=== PATIENT | female | born 1990 | race African-American/Black ===

== ENCOUNTER 2016-06-21 22:26 | Emergency (ER) | payer MEDICAID ==
[~2016-06-21] VITALS: Ht 170.2 cm; Wt 54.4 kg
[2016-06-21 23:45] LABS: Basophils # (auto) 0 uL; Basophils % (auto) 0.3 % (0.0-2.0); Eosinophils # (auto) 0 uL; Eosinophils % (auto) 0.4 % (0.0-7.0); Hematocrit 40.9 % (36.0-46.0); Hemoglobin 12.8 g/dL (12.2-16.2); Lymphocytes # (auto) 1.9 uL; Mean Corpuscular Hemoglobin 29.3 pg (28.0-32.0); Mean Corpuscular Hgb Conc. 31.3 g/dL (32.0-36.0); Mean Corpuscular Volume 93.7 fL (80.0-100.0); Mean Platelet Volume 9.8 fL (7.4-10.4); Monocytes # (auto) 0.5 uL; Monocytes % (auto) 5.8 % (0.0-12.0); Neutrophils # (auto) 5.6 uL; Neutrophils % (auto) 69.5 % (37.0-80.0); Platelet Count (auto) 195 10^3/uL (140-450); Red Cell Distribution Width 13.5 % (11.6-16.0); White Blood Cell 8.1 10^3/uL (4.4-10.8)
[2016-06-22 00:03] LABS: INR 0.98 (0.9-1.15); Prothrombin Time 10.1 sec (9.37-12.3)
[2016-06-22 00:13] LABS: Albumin 4.1 g/dL (3.4-5.0); BUN/Creatinine Ratio 16.1; Calcium 9.2 mg/dL (8.5-10.1)
[2016-06-22 00:23] LABS: Bilirubin, Total 0.5 mg/dL (0.2-1.0); Total Protein 7.6 g/dL (6.4-8.2)
[2016-06-22 06:17] VITALS: BP 106/58
== END 2016-06-22 06:40 | disposition home or self-care (01) ==
LOC: ER 22:30
DX: O20.0 Threatened abortion (principal); O99.331 Smoking (tobacco) complicating pregnancy, first trimester; F17.210 Nicotine dependence, cigarettes, uncomplicated; Z3A.09 9 weeks gestation of pregnancy
CPT/HCPCS: 36415; 76801; 80053; 84702; 85025; 85610; 85730; 94761

== ENCOUNTER 2017-04-02 22:11 | Emergency (ER) | payer MEDICAID ==
[~2017-04-02] VITALS: Ht 170.2 cm; Wt 49.9 kg
[2017-04-02 23:22] LABS: Urine RBC None Seen /hpf (0 - 4)
[2017-04-02 23:24] LABS: Basophils # (auto) 0 uL; Basophils % (auto) 0.4 % (0.0-2.0); Eosinophils # (auto) 0.1 uL; Eosinophils % (auto) 1.2 % (0.0-7.0); Hematocrit 40.9 % (36.0-46.0); Hemoglobin 13.8 g/dL (12.2-16.2); Lymphocytes # (auto) 2.8 uL; Lymphocytes % (auto) 38.1 % (10.0-50.0); Mean Corpuscular Hemoglobin 30.9 pg (28.0-32.0); Mean Corpuscular Hgb Conc. 33.6 g/dL (32.0-36.0); Mean Corpuscular Volume 91.9 fL (80.0-100.0); Mean Platelet Volume 9.5 fL (6.9-10.8); Monocytes # (auto) 0.4 uL; Monocytes % (auto) 5.4 % (0.0-12.0); Neutrophils # (auto) 4.1 uL; Neutrophils % (auto) 54.9 % (37.0-80.0); Nucleated Red Blood Cells % 0.1 %; Platelet Count (auto) 208 10^3/uL (140-450); Red Cell Distribution Width 12.8 % (11.8-14.3); White Blood Cell 7.5 10^3/uL (4.4-10.8)
[2017-04-02 23:28] LABS: Urine Bilirubin Negative (Negative); Urine Blood Negative /uL (Negative); Urine Color Yellow (Yellow); Urine Glucose Normal (Normal); Urine Ketone 2+ (Negative); Urine Mucus FEW (None Seen); Urine Nitrite Negative (Negative); Urine Squamous Epithelial Cell FEW /hpf (<5); Urine Urobilinogen Normal (Negative); Urine pH 5.5 (5.0-8.0)
[2017-04-02 23:41] LABS: Albumin 4.2 g/dL (3.4-5.0); BUN/Creatinine Ratio 15.3; Calcium 9.1 mg/dL (8.5-10.1); Potassium 3.6 mmol/L (3.5-5.1)
[2017-04-02 23:44] LABS: Bilirubin, Total 0.8 mg/dL (0.2-1.0); Total Protein 8.1 g/dL (6.4-8.2)
[2017-04-03 04:30] VITALS: BP 110/64
== END 2017-04-03 06:09 | disposition home or self-care (01) ==
LOC: ER 22:11
DX: O20.0 Threatened abortion (principal); O26.891 Other specified pregnancy related conditions, first trimester; R10.2 Pelvic and perineal pain; Z3A.01 Less than 8 weeks gestation of pregnancy
CPT/HCPCS: 36415; 76801; 76817; 80053; 81001; 84702; 85025

== ENCOUNTER 2017-06-02 22:49 | Emergency (ER) | payer MEDICAID ==
[~2017-06-02] VITALS: Ht 152.4 cm; Wt 54.4 kg
[2017-06-02 23:06] VITALS: BP 119/78
[2017-06-03 01:14] LABS: Basophils # (auto) 0.1 uL; Basophils % (auto) 0.7 % (0.0-2.0); Eosinophils # (auto) 0.2 uL; Eosinophils % (auto) 2.2 % (0.0-7.0); Hematocrit 37.4 % (36.0-46.0); Hemoglobin 12.8 g/dL (12.2-16.2); Lymphocytes # (auto) 2.3 uL; Lymphocytes % (auto) 26.2 % (10.0-50.0); Mean Corpuscular Hemoglobin 31.3 pg (28.0-32.0); Mean Corpuscular Hgb Conc. 34.3 g/dL (32.0-36.0); Mean Corpuscular Volume 91.2 fL (80.0-100.0); Monocytes # (auto) 0.7 uL; Neutrophils # (auto) 5.5 uL; Neutrophils % (auto) 62.9 % (37.0-80.0); Nucleated Red Blood Cells % 0.1 %; Platelet Count (auto) 146 10^3/uL (140-450); Red Cell Distribution Width 13.1 % (11.8-14.3); White Blood Cell 8.7 10^3/uL (4.4-10.8)
[2017-06-03 01:25] LABS: Albumin 3.2 g/dL (3.4-5.0); Potassium 3.3 mmol/L (3.5-5.1)
[2017-06-03 01:27] LABS: Bilirubin, Total 0.3 mg/dL (0.2-1.0)
[2017-06-03 02:04] LABS: Urine Bacteria NONE SEEN /hpf (None Seen); Urine Blood Negative /uL (Negative); Urine Mucus FEW (None Seen); Urine Specific Gravity 1.023 (1.001-1.035); Urine WBC 1 /hpf (0 - 5)
== END 2017-06-03 03:11 | disposition home or self-care (01) ==
LOC: ER 22:52
DX: O20.0 Threatened abortion (principal); O99.331 Smoking (tobacco) complicating pregnancy, first trimester; F17.210 Nicotine dependence, cigarettes, uncomplicated; Z3A.14 14 weeks gestation of pregnancy
CPT/HCPCS: 36415; 76801; 80053; 81001; 84702; 85025

== ENCOUNTER 2017-08-02 10:00 | Observation (INO) | payer MEDICAID ==
[~2017-08-02] VITALS: Ht 170.2 cm; Wt 56.7 kg
[2017-08-02 12:51] LABS: Alcohol, Urine < 3.0 mg/dL (0-5); Amphetamine Screen, Urine NEGATIVE (NEGATIVE); Barbiturate Scree,Urine NEGATIVE (NEGATIVE); Benzodiazephine Screen, Urine NEGATIVE (NEGATIVE); Cannabinoid Screen, Urine NEGATIVE (NEGATIVE); Cocaine Screen, Urine NEGATIVE (NEGATIVE); Opiate Scree,Urine NEGATIVE (NEGATIVE); Phencyclidine Screen, Urine NEGATIVE (NEGATIVE)
[2017-08-02] MEDS ORDERED: BETAMETHASONE ACET (6MG/ML) 5ML VIAL IM ONE (13:45)
[2017-08-02 14:39] LABS: Basophils # (auto) 0 uL; Basophils % (auto) 0.3 % (0.0-2.0); Eosinophils # (auto) 0.1 uL; Eosinophils % (auto) 0.7 % (0.0-7.0); Hematocrit 38.2 % (36.0-46.0); Hemoglobin 12.9 g/dL (12.2-16.2); Lymphocytes # (auto) 1.1 uL; Lymphocytes % (auto) 12.1 % (10.0-50.0); Mean Corpuscular Hgb Conc. 33.7 g/dL (32.0-36.0); Monocytes # (auto) 0.6 uL; Monocytes % (auto) 6.6 % (0.0-12.0); Neutrophils % (auto) 80.3 % (37.0-80.0); Platelet Count (auto) 138 10^3/uL (140-450); Red Blood Cells 4.16 10^6/uL (4.0-5.20); White Blood Cell 8.7 10^3/uL (4.4-10.8)
[2017-08-02] MEDS ORDERED: LACTATED RINGER'S 1,000 ML IV SCH (14:45)
[2017-08-02] MEDS ORDERED: MAGNESIUM SULFATE 40MG/ML 1,000 ML IV SCH (14:45)
[2017-08-02] MEDS ORDERED: MAGNESIUM SULFATE 100 ML IV ONE (14:45)
[2017-08-02] MEDS ORDERED: ceFAZolin 1GM/50ML 50 ML IV SCH (15:00)
[2017-08-02 15:06] LABS: BUN/Creatinine Ratio 9.6; Bilirubin, Total 0.5 mg/dL (0.2-1.0); Calcium 8.4 mg/dL (8.5-10.1); Potassium 3.8 mmol/L (3.5-5.1); Total Protein 7.1 g/dL (6.4-8.2)
[2017-08-02 16:06] LABS: INR 0.92 (0.9-1.15); Partial Thromboplastin Time 26.9 sec (22.64-33.71)
== END 2017-08-02 15:46 | disposition short-term general hospital (02) | DRG 782 ==
LOC: LDRP 10:00
PROVIDERS: ADMIT Obstetrics & Gynecology; ATTEND Obstetrics & Gynecology
DX: O42.912 Preterm premature rupture of membranes, unspecified as to length of time between rupture and onset of labor, second trimester (principal); Z3A.23 23 weeks gestation of pregnancy
CPT/HCPCS: 36415; 59025; 76805; 80053; 80307; 81002; 85025; 85610; 85730; 86850; 86900; 86901; 96365; 96367; 96372; G0378; J0690; J0702; J3475; 96366

== ENCOUNTER 2018-05-02 06:55 | Emergency (ER) | payer MEDICAID ==
[~2018-05-02] VITALS: Ht 167.6 cm; Wt 63.5 kg
[2018-05-02] MEDS ORDERED: SODIUM CHLORIDE 0.9% 1,000 ML IVB ONE (07:28)
[2018-05-02 07:43] LABS: Urine Bacteria FEW /hpf (None Seen); Urine Blood 3+ /uL (Negative); Urine Specific Gravity 1.003 (1.001-1.035); Urine WBC 16 /hpf (0 - 5)
[2018-05-02 07:58] LABS: Basophils # (auto) 0 uL; Basophils % (auto) 0.5 % (0.0-2.0); Eosinophils # (auto) 0.1 uL; Hematocrit 35.8 % (36.0-46.0); Hemoglobin 12.3 g/dL (12.2-16.2); Lymphocytes # (auto) 1.6 uL; Lymphocytes % (auto) 15.6 % (10.0-50.0); Mean Corpuscular Hemoglobin 30.5 pg (28.0-32.0); Mean Corpuscular Hgb Conc. 34.4 g/dL (32.0-36.0); Mean Corpuscular Volume 88.6 fL (80.0-100.0); Monocytes # (auto) 0.6 uL; Monocytes % (auto) 6.4 % (0.0-12.0); Neutrophils # (auto) 7.7 uL; Neutrophils % (auto) 76.5 % (37.0-80.0); Platelet Count (auto) 152 10^3/uL (140-450); Red Blood Cells 4.04 10^6/uL (4.0-5.20); Red Cell Distribution Width 13.4 % (11.8-14.3)
[2018-05-02 08:15] LABS: Albumin 2.9 g/dL (3.4-5.0); Calcium 8.2 mg/dL (8.5-10.1); Potassium 3.7 mmol/L (3.5-5.1)
[2018-05-02 08:19] LABS: BUN/Creatinine Ratio 10.3; Bilirubin, Total 0.5 mg/dL (0.2-1.0); Total Protein 6.8 g/dL (6.4-8.2)
[2018-05-02 09:48] VITALS: BP 105/73
== END 2018-05-02 10:01 | disposition home or self-care (01) ==
LOC: ER 06:55 → EDBD 06:55 → ER 10:01
DX: O20.9 Hemorrhage in early pregnancy, unspecified (principal); Z3A.19 19 weeks gestation of pregnancy
CPT/HCPCS: 36415; 76805; 80053; 81001; 84702; 85025; 86850; 86900; 86901; 94761; 99284; J7030

== ENCOUNTER 2019-01-16 23:31 | Emergency (ER) | payer MEDICAID ==
[~2019-01-16] VITALS: Ht 170.2 cm; Wt 63.5 kg
[2019-01-17 00:34] LABS: Basophils # (auto) 0.1 uL; Basophils % (auto) 0.6 % (0.0-2.0); Eosinophils # (auto) 0.1 uL; Eosinophils % (auto) 0.8 % (0.0-7.0); Hematocrit 33.1 % (36.0-46.0); Hemoglobin 11.1 g/dL (12.2-16.2); Lymphocytes # (auto) 1.8 uL; Lymphocytes % (auto) 19.5 % (10.0-50.0); Mean Corpuscular Hemoglobin 27.6 pg (28.0-32.0); Mean Corpuscular Hgb Conc. 33.6 g/dL (32.0-36.0); Mean Corpuscular Volume 81.9 fL (80.0-100.0); Monocytes # (auto) 0.7 uL; Monocytes % (auto) 7.3 % (0.0-12.0); Neutrophils # (auto) 6.7 uL; Neutrophils % (auto) 71.8 % (37.0-80.0); Nucleated Red Blood Cells % 0.1 %; Platelet Count (auto) 173 10^3/uL (140-450); Red Blood Cells 4.04 10^6/uL (4.0-5.20); White Blood Cell 9.3 10^3/uL (4.4-10.8)
[2019-01-17 06:50] VITALS: BP 108/64
[2019-01-17 07:46] LABS: Urine Bacteria FEW /hpf (None Seen); Urine Blood Negative /uL (Negative); Urine Mucus FEW (None Seen); Urine Specific Gravity 1.011 (1.001-1.035); Urine WBC 2 /hpf (0 - 5)
== END 2019-01-17 09:27 | disposition left against medical advice (07) ==
LOC: ER 23:34
DX: O26.891 Other specified pregnancy related conditions, first trimester (principal); R10.30 Lower abdominal pain, unspecified; R10.2 Pelvic and perineal pain; Z88.6 Allergy status to analgesic agent; Z88.8 Allergy status to other drugs, medicaments and biological substances; Z3A.10 10 weeks gestation of pregnancy
CPT/HCPCS: 36415; 81001; 84702; 85025

== ENCOUNTER 2019-03-05 17:12 | Observation (INO) | payer MEDICAID ==
[~2019-03-05] VITALS: Ht 170.2 cm; Wt 64.9 kg
[2019-03-05] MEDS ORDERED: HYDR250I6 IM (17:47)
[2019-03-05] MEDS ORDERED: PREN-96 PO (17:47)
[2019-03-05] MEDS ORDERED: LACTATED RINGER'S 1,000 ML IV SCH (20:45)
[2019-03-05] MEDS ORDERED: LACTATED RINGER'S 500 ML IV ONE (20:45)
[2019-03-05 21:56] LABS: Basophils # (auto) 0 uL; Basophils % (auto) 0.2 % (0.0-2.0); Eosinophils # (auto) 0.1 uL; Eosinophils % (auto) 0.8 % (0.0-7.0); Hematocrit 32.6 % (36.0-46.0); Hemoglobin 10.7 g/dL (12.2-16.2); Lymphocytes # (auto) 1.7 uL; Lymphocytes % (auto) 15.6 % (10.0-50.0); Mean Corpuscular Hemoglobin 27.9 pg (28.0-32.0); Mean Corpuscular Hgb Conc. 32.9 g/dL (32.0-36.0); Mean Corpuscular Volume 84.8 fL (80.0-100.0); Monocytes # (auto) 0.8 uL; Neutrophils # (auto) 8.2 uL; Neutrophils % (auto) 76.4 % (37.0-80.0); Nucleated Red Blood Cells % 0.1 %; Platelet Count (auto) 176 10^3/uL (140-450); Red Blood Cells 3.85 10^6/uL (4.0-5.20); Red Cell Distribution Width 15.2 % (11.8-14.3); White Blood Cell 10.8 10^3/uL (4.4-10.8)
[2019-03-05 21:58] LABS: Albumin 2.9 g/dL (3.4-5.0); Potassium 3.9 mmol/L (3.5-5.1)
[2019-03-05 21:59] LABS: INR 0.93 (0.9-1.15); Partial Thromboplastin Time 25.6 sec (23.64-32.05)
[2019-03-05 22:01] LABS: Bilirubin, Total 0.3 mg/dL (0.2-1.0); Total Protein 7.3 g/dL (6.4-8.2)
[2019-03-05 22:29] LABS: Urine Bacteria FEW /hpf (None Seen); Urine Blood Negative /uL (Negative); Urine Mucus FEW (None Seen); Urine Specific Gravity 1.017 (1.001-1.035); Urine WBC 1 /hpf (0 - 5)
[2019-03-06] MEDS ORDERED: ceFAZolin 1GM/50ML 50 ML IV ONE (10:01)
[2019-03-06] MEDS ORDERED: LACTATED RINGER'S 1,000 ML IV SCH (10:49)
[2019-03-06] MEDS ORDERED: ePHEDrine SULFATE 50 MG/ML AMP IV PRN (11:00)
[2019-03-06] MEDS ORDERED: LABETALOL HCL 5 MG/ML 4ML SYRINGE IV PRN (11:00)
[2019-03-06] MEDS ORDERED: ONDANSETRON HCL 4 MG/2 ML VIAL IV PRN (11:00)
[2019-03-06 11:27] VITALS: BP 106/62
--- NOTE | 2019-03-06 14:45 | NUR ---
[place] and juice provided to patient; pt has feeling and able to move legs; pt attempt to walk with RN assist; unable to walk at this time. Pt to remain on unit until able to ambulate independently per Dr Debora walters.
== END 2019-03-06 16:27 | disposition home or self-care (01) | DRG 566 ==
LOC: LDRP 17:12
PROVIDERS: ADMIT Obstetrics & Gynecology; ATTEND Obstetrics & Gynecology
DX: O34.32 Maternal care for cervical incompetence, second trimester (principal); O09.212 Supervision of pregnancy with history of pre-term labor, second trimester; Z88.6 Allergy status to analgesic agent; Z3A.22 22 weeks gestation of pregnancy
CPT/HCPCS: 36415; 59025; 59320; 80053; 81001; 81002; 84112; 84702; 85025; 85610; 85730; 86850; 86900; 86901; G0378; J0690; 96361; 96365

== ENCOUNTER 2019-03-26 11:08 | Observation (INO) | payer MEDICAID ==
[~2019-03-26] VITALS: Ht 170.2 cm; Wt 67.1 kg
[~2019-03-26 11:08] MED LIST: HYDR250I6 IM; PREN-96 PO
[2019-03-26] MEDS ORDERED: BETAMETHASONE ACET (6MG/ML) 5ML VIAL ONE (12:16)
[2019-03-27] MEDS ORDERED: BETAMETHASONE ACET (6MG/ML) 5ML VIAL IM SCH (10:00)
[2019-03-27] MEDS ORDERED: ACYC-43 PO (13:27)
== END 2019-03-26 12:45 | disposition home or self-care (01) | DRG 566 ==
LOC: LDRP 11:08
PROVIDERS: ADMIT Specialist; ATTEND Specialist
DX: O34.82 Maternal care for other abnormalities of pelvic organs, second trimester (principal); O60.02 Preterm labor without delivery, second trimester; Z3A.24 24 weeks gestation of pregnancy; Z86.19 Personal history of other infectious and parasitic diseases
CPT/HCPCS: 59025; 81002; 96372; G0378; J0702

== ENCOUNTER 2019-03-27 13:00 | Observation (INO) | payer MEDICAID ==
[~2019-03-27] VITALS: Ht 170.2 cm; Wt 67.1 kg
[2019-03-27] MEDS ORDERED: ACYC-43 PO (13:27)
[2019-03-28] MEDS ORDERED: BETAMETHASONE ACET (6MG/ML) 5ML VIAL IM SCH (10:00)
== END 2019-03-27 13:57 | disposition home or self-care (01) | DRG 955 ==
LOC: LDRP 13:00
PROVIDERS: ADMIT Obstetrics & Gynecology; ATTEND Obstetrics & Gynecology
DX: O09.212 Supervision of pregnancy with history of pre-term labor, second trimester (principal); O26.893 Other specified pregnancy related conditions, third trimester; R11.0 Nausea; O34.219 Maternal care for unspecified type scar from previous cesarean delivery; Z87.59 Personal history of other complications of pregnancy, childbirth and the puerperium; Z3A.24 24 weeks gestation of pregnancy
CPT/HCPCS: 59025; 81002; 96372; G0378

== ENCOUNTER 2019-05-20 11:45 | Observation (INO) | payer MEDICAID ==
[~2019-05-20 11:45] MED LIST changes: +ACYC-43 PO
== END 2019-05-20 13:15 | disposition home or self-care (01) | DRG 955 ==
LOC: LDRP 11:45
PROVIDERS: ADMIT Specialist; ATTEND Specialist
DX: O09.213 Supervision of pregnancy with history of pre-term labor, third trimester (principal); Z3A.32 32 weeks gestation of pregnancy
CPT/HCPCS: 59025; 76818; 81002; G0378

== ENCOUNTER 2019-06-10 12:07 | Observation (INO) | payer MEDICAID ==
[~2019-06-10] VITALS: Ht 170.2 cm; Wt 73.9 kg
[2019-06-10] MEDS ORDERED: LACTATED RINGER'S 1,000 ML IV ONE ×2 (12:53→15:45)
[2019-06-10] MEDS ORDERED: TERBUTALINE SULFATE 1 MG/ML 1ML VIAL SC ONE ×3 (12:57→13:45)
[2019-06-10] MEDS ORDERED: NIFEdipine 10 MG CAP PO ONE (14:45)
[2019-06-10] MEDS ORDERED: NIFEdipine 10 MG CAP ONE (14:47)
[2019-06-10 17:05] LABS: Amphetamine Screen, Urine NEGATIVE (NEGATIVE); Barbiturate Scree,Urine NEGATIVE (NEGATIVE); Benzodiazephine Screen, Urine NEGATIVE (NEGATIVE); Cannabinoid Screen, Urine NEGATIVE (NEGATIVE); Cocaine Screen, Urine NEGATIVE (NEGATIVE); Opiate Scree,Urine NEGATIVE (NEGATIVE); Phencyclidine Screen, Urine NEGATIVE (NEGATIVE)
--- NOTE | 2019-06-10 18:10 | NUR ---
Report received for stable Observation patient from Candelaria Joy RN
[2019-06-10 18:35] VITALS: BP 113/61
[2019-06-10] MEDS: NIFEdipine 10 MG CAP PO SCH ×2 (18:45→22:52)
[2019-06-10] MEDS: LACTATED RINGER'S 1,000 ML IV SCH (18:46)
[2019-06-10 22:30] VITALS: BP 109/65
[2019-06-10] MEDS: ONDANSETRON HCL 4 MG/2 ML VIAL IV PRN (22:52)
[2019-06-11] MEDS: LACTATED RINGER'S 1,000 ML IV SCH ×2 (01:14→12:55)
[2019-06-11] MEDS: cefTRIAXone 1GM/50ML D5W 50 ML IV ONE ×2 (01:30→01:31)
[2019-06-11] MEDS: cefTRIAXone 1GM/50ML D5W 50 ML IV SCH ×2 (01:31→09:00)
[2019-06-11] MEDS: ONDANSETRON HCL 4 MG/2 ML VIAL IV PRN (02:48)
[2019-06-11 02:49] VITALS: BP 110/56
[2019-06-11] MEDS: NIFEdipine 10 MG CAP PO SCH ×4 (02:49→15:00)
[2019-06-11] MEDS ORDERED: cefTRIAXone 1GM/50ML D5W 50 ML IV ONE (14:00)
== END 2019-06-11 16:25 | disposition home or self-care (01) | DRG 566 ==
LOC: INTOOBSV 12:07 → OBSVTOIN 12:07 → LDRP 12:07
PROVIDERS: ADMIT Specialist; ATTEND Specialist
DX: O26.893 Other specified pregnancy related conditions, third trimester (principal); Z3A.35 35 weeks gestation of pregnancy; Z88.6 Allergy status to analgesic agent
CPT/HCPCS: 59025; 76805; 76815; 80307; 81002; 94760; 96365; 96366; 96372; 96375; 96376; G0378; J0696; J2405; J3105; 96361

== ENCOUNTER 2019-06-24 05:20 | Observation (INO) | payer MEDICAID ==
[~2019-06-24] VITALS: Ht 1 cm; Wt 0.0 kg
[2019-06-24] MEDS ORDERED: TERBUTALINE SULFATE 1 MG/ML 1ML VIAL SC ONE (05:39)
[2019-06-24] MEDS ORDERED: TERBUTALINE SULFATE 1 MG/ML 1ML VIAL SC SCH (05:45)
[2019-06-24] MEDS ORDERED: NIF10C PO (06:48)
== END 2019-06-24 07:12 | disposition home or self-care (01) | DRG 563 ==
LOC: LDRP 05:20
PROVIDERS: ADMIT Obstetrics & Gynecology; ATTEND Obstetrics & Gynecology
DX: O60.03 Preterm labor without delivery, third trimester (principal); Z3A.37 37 weeks gestation of pregnancy; Z91.040 Latex allergy status
CPT/HCPCS: 59025; 81002; 94760; 96372; G0378; J3105

== ENCOUNTER 2019-07-06 08:35 | Inpatient (IN) | payer MEDICAID ==
[2019-07-06] VITALS (9 sets, daily range): BP systolic 116–131; BP diastolic 64–84
[~2019-07-06] VITALS: Ht 170.2 cm; Wt 75.3 kg
[~2019-07-06 08:35] MED LIST changes: +NIF10C PO
[2019-07-06 09:45] LABS: Basophils # (auto) 0 uL; Basophils % (auto) 0.3 % (0.0-2.0); Eosinophils # (auto) 0.1 uL; Eosinophils % (auto) 1.7 % (0.0-7.0); Hematocrit 28.4 % (36.0-46.0); Hemoglobin 8.8 g/dL (12.2-16.2); Lymphocytes # (auto) 1.2 uL; Lymphocytes % (auto) 14.2 % (10.0-50.0); Mean Corpuscular Hemoglobin 21.8 pg (28.0-32.0); Mean Corpuscular Volume 70.3 fL (80.0-100.0); Monocytes # (auto) 0.7 uL; Monocytes % (auto) 9.1 % (0.0-12.0); Neutrophils # (auto) 6.1 uL; Neutrophils % (auto) 74.7 % (37.0-80.0); Nucleated Red Blood Cells % 0.2 %; Platelet Count (auto) 139 10^3/uL (140-450); Red Blood Cells 4.03 10^6/uL (4.0-5.20); Red Cell Distribution Width 19.2 % (11.8-14.3); White Blood Cell 8.2 10^3/uL (4.4-10.8)
[2019-07-06] MEDS: LACTATED RINGER'S 1,000 ML IV SCH ×4 (10:02→19:02)
[2019-07-06 10:07] LABS: Albumin 2.5 g/dL (3.4-5.0); BUN/Creatinine Ratio 6.4
[2019-07-06 10:09] LABS: Bilirubin, Total 0.9 mg/dL (0.2-1.0); Total Protein 6.7 g/dL (6.4-8.2)
[2019-07-06 10:22] LABS: Potassium 2.9 mmol/L (3.5-5.1)
[2019-07-06 10:30] LABS: Partial Thromboplastin Time 26.5 sec (23.64-32.05)
[2019-07-06] MEDS ORDERED: POTASSIUM CHL 20 Meq TABLET PO ONE (10:45)
[2019-07-06] MEDS ORDERED: TETRACAINE 1% INJ 2 ML VIAL IJ ONE (11:53)
[2019-07-06] MEDS ORDERED: MORPHINE SULF(PF) 0.5MG/ML 10ML VIAL ONE (11:56)
[2019-07-06] MEDS ORDERED: fentaNYL CITRATE 100 MCG/2 ML VL ONE (11:56)
[2019-07-06] MEDS: POTASSIUM CHL 20MEQ/100ML 100 ML IV SCH ×2 (11:57→19:02)
[2019-07-06] MEDS ORDERED: MIDAZOLAM HCL 1MG/1ML-2 ML VIAL ONE (11:57)
[2019-07-06 12:17] LABS: Urine Bacteria FEW /hpf (None Seen); Urine Blood Negative /uL (Negative); Urine Mucus FEW (None Seen); Urine WBC 1 /hpf (0 - 5)
[2019-07-06] MEDS ORDERED: OXYTOCIN 10 UNIT/ML 10ML VIAL ONE (12:40)
[2019-07-06] MEDS ORDERED: ceFAZolin 1GM VL ONE (12:40)
[2019-07-06] MEDS ORDERED: NALOXONE HCL 0.4 MG/ML VIAL IV PRN (14:30)
[2019-07-06] MEDS ORDERED: diphenhdrAMINE HCL 50 MG/1 ML VL IV PRN (14:30)
[2019-07-06] MEDS ORDERED: HYDROmorphone HCL 2 MG/ML VL IV PRN ×2 (14:30)
[2019-07-06] MEDS ORDERED: DexAMETHasone SOD PHOS 10MG/1ML VIAL INJ IV PRN (14:30)
[2019-07-06] MEDS ORDERED: MORPHINE SULFATE 4 MG/ML SYR/VIAL IV PRN (14:30)
[2019-07-06] MEDS ORDERED: KETOROLAC TROMETH 15 mg/ml 1ML VL IV PRN (14:30)
[2019-07-06] MEDS ORDERED: ONDANSETRON HCL 4 MG/2 ML VIAL IV PRN ×3 (14:30→15:15)
[2019-07-06] MEDS ORDERED: MIDAZOLAM HCL 1MG/1ML-2 ML VIAL IV PRN (14:30)
[2019-07-06] MEDS ORDERED: LABETALOL HCL 5 MG/ML 4ML SYRINGE IV PRN (14:30)
[2019-07-06] MEDS ORDERED: NALBUPHINE HCL 10 MG/1ml INJECTION SUBCUT ONE (14:30)
[2019-07-06] MEDS ORDERED: ePHEDrine SULFATE 50 MG/ML AMP IV PRN (14:30)
[2019-07-06] MEDS ORDERED: ceFAZolin 1GM/50ML 50 ML IV SCH (15:15)
[2019-07-06] MEDS ORDERED: ACETAMINOPHEN IV 1000 MG/100ML (10MG/ML) IV PRN ×2 (15:30→21:00)
--- NOTE | 2019-07-06 15:53 | NUR ---
REPORT RECEIVED AT PT BEDSIDE IN PACU FROM MARCIANO MOSQUEDA RN ON STABLE PATIENT.
--- NOTE | 2019-07-06 16:25 | NUR ---
Post Op for LDRP: Received patient from PACU via bed to room 8B. Patient A/A/Ox4, abdominal binder and bilateral SCD's are in place, IV fluids placed on pump and infusing per order, incisional site dressing clean/dry/intact and Kauffman Catheter to gravity draining clear yellow urine. Incentive Spirometer at bedside and instruction on proper use with return demonstration done by patient.
[2019-07-06] MEDS: ceFAZolin 1GM/50ML 50 ML IV SCH (21:03)
[2019-07-07] MEDS: HYDROmorphone HCL 2 MG/ML VL IV PRN ×2 (00:08→07:43)
[2019-07-07] MEDS ORDERED: ACETAMINOPHEN IV 1000 MG/100ML (10MG/ML) IV ONE (03:00)
--- NOTE | 2019-07-07 03:00 | NUR ---
Ambulation: Pericare performed, clean peripad/underwear/gown, surgical dressing removed, incision well approximated/18 intact oneal. Patient ambulates to bedside chair with steady gait with standby assist from RN. Complete bed linen change provided. Clean gown provided and patient ambulates back to bed with steady gait accompanied by RN.
[2019-07-07] MEDS: LACTATED RINGER'S 1,000 ML IV SCH (03:24)
[2019-07-07 03:30] VITALS: BP 123/77
[2019-07-07] MEDS: ceFAZolin 1GM/50ML 50 ML IV SCH ×2 (05:20→13:21)
--- NOTE | 2019-07-07 05:30 | NUR ---
Pike catheter dc'd Order to discontinue pike catheter by Andry Shukla CNM. Pike dc'd with clean technique following deflation of balloon. Patient tolerated well with no complaints of pain. Continue care.
[2019-07-07] MEDS ORDERED: LACTATED RINGER'S 1,000 ML IV SCH (05:38)
[2019-07-07 06:20] LABS: Basophils # (auto) 0 uL; Eosinophils # (auto) 0.1 uL; Lymphocytes # (auto) 0.9 uL; Mean Corpuscular Hemoglobin 21.5 pg (28.0-32.0); Monocytes # (auto) 1.1 uL; Monocytes % (auto) 7.2 % (0.0-12.0); Nucleated Red Blood Cells % 0.2 %; White Blood Cell 15.1 10^3/uL (4.4-10.8)
[2019-07-07 06:25] LABS: Basophils % (auto) 0.2 % (0.0-2.0); Eosinophils % (auto) 0.5 % (0.0-7.0); Hematocrit 29.3 % (36.0-46.0); Lymphocytes % (auto) 6.2 % (10.0-50.0); Mean Corpuscular Hgb Conc. 30.7 g/dL (32.0-36.0); Neutrophils % (auto) 85.9 % (37.0-80.0); Platelet Count (auto) 165 10^3/uL (140-450); Red Blood Cells 4.19 10^6/uL (4.0-5.20)
[2019-07-07 06:45] VITALS: BP 116/67
--- NOTE | 2019-07-07 08:30 | NUR ---
Pt educated on proper use of incentive spirometer and instructed to use 10 x per hour regardless of ambulation status; pt also instructed to keep bilateral SCD's on while resting in bed, and she may only take them off for ambulation. Pt verbalizes understanding and agrees to comply.
[2019-07-07] MEDS: DOCUSATE SOD 100 MG CAP PO SCH ×2 (10:23→22:01)
[2019-07-07] MEDS ORDERED: HYDROcodone-ACET 5/325MG TAB PO PRN (10:30)
[2019-07-07 10:50] VITALS: BP 120/72
--- NOTE | 2019-07-07 11:00 | NUR ---
Ambulation: Patient OOB without assistance by RN. Patient ambulated to bathroom with steady gait. Patient able to void 350mL without difficulty. Pericare teaching provided with returned demonstration by patient. Patient ambulated back to bed with steady gait and no distress noted.
[2019-07-07] MEDS: HYDROcodone-ACET 5/325MG TAB PO PRN ×3 (11:15→22:02)
[2019-07-07 14:35] VITALS: BP 131/83
[2019-07-07 19:00] VITALS: BP 126/76
--- NOTE | 2019-07-07 19:10 | NUR ---
Pain Upon initial assessment, patient complains of lateral abdominal muscle tightness pain and shortness of breath. SBAR and update to Andry ESCOTOM including but not limited to assessment- O2 sat 97%, lung sounds clear and equal bilaterally, pt has not been ambulating due to pain. CNM and this RN encourage patient to ambulate after feeding infant, discussed continued use of incentive spirometer and SCDs. Risks of not ambulating discussed, including DVT, PE, pneumonia. Pt verbalizes understanding.
[2019-07-07] MEDS: SIMETHICONE 80 MG CHEWABLE TABLET PO PRN (22:01)
--- NOTE | 2019-07-07 22:15 | NUR ---
Ambulation Patient out of bed to bathroom and ambulated length of hallway x2 and back to bed. Patient tolerated well.
[2019-07-07 23:00] VITALS: BP 123/77
[2019-07-08 03:00] VITALS: BP 130/79
[2019-07-08] MEDS: HYDROcodone-ACET 5/325MG TAB PO PRN ×4 (03:53→20:35)
[2019-07-08 07:15] VITALS: BP 137/91
--- NOTE | 2019-07-08 09:50 | NUR ---
Ambulation Pt ambulating hallway via steady gait, pushing infant in open crib. Respirations even and non labored, no distress noted.
[2019-07-08] MEDS: DOCUSATE SOD 100 MG CAP PO SCH ×2 (10:16→22:57)
[2019-07-08] MEDS: SIMETHICONE 80 MG CHEWABLE TABLET PO PRN (10:16)
[2019-07-08 10:30] VITALS: BP 131/82
[2019-07-08 14:30] VITALS: BP 124/81
[2019-07-08 19:00] VITALS: BP 134/92
[2019-07-08 23:03] VITALS: BP 132/82
[2019-07-09] MEDS: HYDROcodone-ACET 5/325MG TAB PO PRN ×2 (02:34→08:05)
[2019-07-09 02:54] VITALS: BP 122/77
[2019-07-09 08:06] VITALS: BP 124/77
--- NOTE | 2019-07-09 08:08 | NUR ---
IV removal IV DC'd with sterile technique, catheter fully intact. Pressure dressing applied to site. Patient tolerated procedure well. Discharged with aftercare instructions per MD. NOTE:
--- NOTE | 2019-07-09 08:55 | NUR ---
Discharge: Discharge instructions given as ordered. Pt encouraged to follow up with [facility] [employer] as instructed. All questions and concerns addressed. Patient verbalized understanding. Medication reconciliation completed and copy given to patient. Patient encouraged to prepare to depart unit.
--- NOTE | 2019-07-09 09:30 | NUR ---
Discharge: Patient taken to vehicle per patient requesting out ambulate out of unit with all personal belongings, accompanied by staff and family member. No distress noted at time of departure, no adverse changes in status since initial assessment.
[2019-07-13 10:48] LABS: RPR Non Reactive (Non Reactive)
== END 2019-07-09 09:30 | disposition home or self-care (01) | DRG 540 ==
LOC: LDRP 08:35
PROVIDERS: ADMIT Specialist; ATTEND Specialist
PROC: 0UCC7ZZ Extirpation of Matter from Cervix, Via Natural or Artificial Opening (ICD-10-PCS; 2019-07-06)
PROC: 0DNW0ZZ Release Peritoneum, Open Approach (ICD-10-PCS; 2019-07-06)
PROC: 10D00Z1 Extraction of Products of Conception, Low, Open Approach (ICD-10-PCS; principal; 2019-07-06 13:19)
DX: O34.211 Maternal care for low transverse scar from previous cesarean delivery (principal); D64.9 Anemia, unspecified; K66.0 Peritoneal adhesions (postprocedural) (postinfection); O99.013 Anemia complicating pregnancy, third trimester; O99.284 Endocrine, nutritional and metabolic diseases complicating childbirth; E87.6 Hypokalemia; Z37.0 Single live birth; Z3A.39 39 weeks gestation of pregnancy
CPT/HCPCS: 36415; 51702; 59025; 80053; 81001; 81002; 84112; 84132; 85025; 85610; 85730; 86592; 86850; 86900; 86901; 86920; 94760; 96361; 96365; 96366; 96374; G0378; J0131; J0690; J2250; J2590; J3480

== ENCOUNTER 2019-09-05 09:59 | Emergency (ER) | payer MEDICAID ==
[~2019-09-05] VITALS: Ht 170.2 cm; Wt 65.3 kg
[~2019-09-05 09:59] MED LIST changes: +ACYC-163 PO; -ACYC-43 PO; -HYDR250I6 IM; -NIF10C PO
[2019-09-05 10:54] VITALS: BP 131/85
[2019-09-05] MEDS ORDERED: KETOROLAC TROMETH 60MG/2ML VIAL IM ONE (11:45)
== END 2019-09-05 12:07 | disposition home or self-care (01) ==
LOC: ER 09:59
DX: K64.4 Residual hemorrhoidal skin tags (principal)
CPT/HCPCS: 96372; 99283; J1885

== ENCOUNTER 2021-11-17 00:34 | Emergency (ER) | payer MEDICAID ==
[~2021-11-17] VITALS: Ht 170.2 cm; Wt 54.4 kg
[2021-11-17 02:08] LABS: Basophils # (auto) 0 10 ^3/uL (0-0.2); Basophils % (auto) 0.5 % (0.0-2.0); Eosinophils # (auto) 0.1 10 ^3/uL (0-0.8); Eosinophils % (auto) 1.9 % (0.0-7.0); Hematocrit 36.6 % (36.0-46.0); Hemoglobin 12.8 g/dL (12.2-16.2); Lymphocytes # (auto) 1.9 10 ^3/uL (0.4-5.4); Lymphocytes % (auto) 35.9 % (10.0-50.0); Mean Corpuscular Hemoglobin 31.7 pg (28.0-32.0); Mean Corpuscular Hgb Conc. 34.9 g/dL (32.0-36.0); Mean Corpuscular Volume 90.6 fL (80.0-100.0); Monocytes # (auto) 0.3 10 ^3/uL (0-1.3); Monocytes % (auto) 6.7 % (0.0-12.0); Neutrophils # (auto) 2.8 10 ^3/uL (1.6-8.6); Nucleated Red Blood Cells % 0.1 %; Red Blood Cells 4.04 10^6/uL (4.0-5.20); Red Cell Distribution Width 13.8 % (11.8-14.3); White Blood Cell 5.2 10^3/uL (4.4-10.8)
[2021-11-17 02:24] LABS: INR 0.97 (0.9-1.15); Partial Thromboplastin Time 24.8 sec (23.6-33.0)
[2021-11-17 02:25] LABS: Albumin 3.8 g/dL (3.4-5.0); BUN/Creatinine Ratio 11.3; Calcium 8.8 mg/dL (8.5-10.1); Potassium 3.3 mmol/L (3.5-5.1)
[2021-11-17 02:28] LABS: Bilirubin, Total 0.6 mg/dL (0.2-1.0); Total Protein 7.1 g/dL (6.4-8.2)
[2021-11-17 02:59] LABS: Urine Bacteria FEW /hpf (None Seen); Urine Blood Negative /uL (Negative); Urine Mucus FEW (None Seen); Urine Specific Gravity 1.018 (1.001-1.035); Urine WBC 8 /hpf (0 - 5)
[2021-11-17] MEDS ORDERED: CEFP200T15 PO (07:35)
[2021-11-17 07:48] VITALS: BP 130/80
== END 2021-11-17 07:49 | disposition home or self-care (01) ==
LOC: ER 00:34
DX: O20.0 Threatened abortion (principal); N30.00 Acute cystitis without hematuria; Z3A.01 Less than 8 weeks gestation of pregnancy
CPT/HCPCS: 36415; 76801; 80053; 81001; 84702; 85025; 85610; 85730; 86850; 86900; 86901